=== PATIENT | male | born 1970 | race Caucasian/White ===

== ENCOUNTER 2024-07-23 09:54 | Day surgery (SDC) | payer OTHER ==
[~2024-07-23] VITALS: Ht 180.3 cm; Wt 84.8 kg
[~2024-07-23 09:54] MED LIST: Atropine Sulfate 0.1 MG/ML 10ML SYR ONE; Glycopyrrolate 0.2 MG/ML 1MLVIAL ONE; Lactated Ringer's 1,000 ML IV ONE; Lidocaine 2% 5 ML SDV ONE; Lidocaine HCl/Pf 1% 5 ML VIAL ONE; Methylene Blue 1% 100 MG/10 ML VIAL ONE; Ondansetron HCl 2 MG / ML 2ML Vial ONE; ePHEDrine Sulfate 50 MG/ML 1ML Injection ONE; propofoL 50 ML IV ONE
[2024-07-23] MEDS ORDERED: VITAMIN D5000 UNIT (11:12)
[2024-07-23] MEDS ORDERED: CLIN1TS (11:12)
[2024-07-23] MEDS ORDERED: Lactated Ringer's 1,000 ML IV ONE (11:19)
== END 2024-07-23 12:30 | disposition home or self-care (01) ==
LOC: ORSCSDS 09:54
PROVIDERS: Surgery
PROC: 0DBN8ZX Excision of Sigmoid Colon, Via Natural or Artificial Opening Endoscopic, Diagnostic (ICD-10-PCS; principal; 2024-07-23 11:15)
DX: Z12.11 Encounter for screening for malignant neoplasm of colon (principal); D12.5 Benign neoplasm of sigmoid colon; F17.210 Nicotine dependence, cigarettes, uncomplicated; Z79.899 Other long term (current) drug therapy
CPT/HCPCS: 88305; J0461; J2003; J2405; J2704; J7120; Q9968